=== PATIENT | male | born 1955 | race Caucasian/White ===

== ENCOUNTER 2016-12-27 07:29 | Emergency (ER) | payer OTHER ==
[2016-12-27 08:05] LABS: BASO # 0.1 K/mm3 (0.0-0.2); BASO % 0.4 % (0.2-1.0); EOS # 0.1 (0.0-0.5); EOS % 1.1 % (0.9-2.9); HEMATOCRIT 46.5 % (32.0-52.0); HEMOGLOBIN 15.5 gm/l (14.0-18.0); IMM NEUT% 0.3 % (0-1); LYMPH # 1.6 (1.0-4.8); LYMPH % 13.9 % (15-45); MEAN CELL VOLUME 92.3 fl (80.0-94.0); MEAN CORPUSCULAR HEMOGLOBIN 30.8 pg (27.0-31.0); MEAN CORPUSCULAR HGB CONC 33.3 g/dl (33.0-37.0); MEAN PLATELET VOLUME 11.6 fl (7.4-10.4); MONO # 0.9 (0.0-0.8); MONO % 7.5 % (4-12); NEUT % 76.8 % (43-75); PLATELET COUNT 192 K/mm3 (130-400)
[2016-12-27] MEDS ORDERED: ONDANSETRON 4 MG/2ML 2 ML VIAL ONE (08:08)
[2016-12-27] MEDS ORDERED: LACTATED RINGERS 1,000 ML ONE ×2 (08:08→10:13)
[2016-12-27] MEDS ORDERED: HYDROMORPHONE HCL 0.5 MG/0.5 ML SYRINGE ONE ×3 (08:08→13:05)
[2016-12-27 08:26] LABS: ALB/GLOB RATIO 0.9 (>1.0); ALBUMIN 3.6 gm/dL (3.5-5.7)
--- NOTE | 2016-12-27 09:30 | CT ---
CT ABDOMEN AND PELVIS WITHOUT CONTRAST HISTORY: Left-sided pain, history of renal calculi. TECHNIQUE: No intravenous contrast administered; contiguous axial images were acquired from the lung bases to the ischial tuberosities. Oral contrast was not administered. COMPARISON:None. FINDINGS: LUNG BASES: No gross airspace consolidation or pleural effusion. This made of complex cystic versus soft tissue attenuation lesion measuring 8.2 x 4.0 cm in axial dimensions, at least 2.6 cm, incompletely depicted. A congenital cyst (e.g., pericardial cyst, bronchogenic cyst) is favored, but follow-up chest CT assessment with contrast is recommended. LIVER: No focal mass effect. SPLEEN: No focal mass effect. PANCREAS: No focal mass effect. ADRENAL GLANDS: No mass effect. KIDNEYS: 5 mm left renal calculus. No collecting system dilatation on the left. Partly calcified lesion measuring 11 mm in size. There is ureteral dilatation with a 4 mm calculus identified at the L4 level. No additional ureteral calculi. GALLBLADDER: Present. BOWEL: Moderate fecal loading. Limited assessment of the distal colon due to decompression. No abnormal small bowel dilatation. APPENDIX: Not clearly identified. PELVIC ORGANS: No gross mass effect. Inguinal regions: Fatty left inguinal hernia. FREE FLUID: No gross free fluid identified. ABDOMINOPELVIC LYMPH NODES: No abnormally enlarged lymph nodes identified. ABDOMINAL AORTA: Mild to moderate calcifications without aneurysmal dilatation. ANTERIOR ABDOMINAL WALL: Supraumbilical fatty ventral hernia with minor stranding of fat. No bowel content or fluid identified. OSSEOUS STRUCTURES: Severe disc degeneration at the L3-4 level with associated canal stenosis. Evaluation of the spine somewhat limited given body habitus. IMPRESSION: 1. Obstructive 4 mm left proximal ureteral calculus, 5 mm left renal calculus remaining. 2. 8.2 cm right-sided pericardial lesion; while a complex congenital cyst is favored, recommend eventual postcontrast CT to exclude a solid mass lesion. 3. Fatty left inguinal and supraumbilical ventral herniation. 4. Prominent disc degeneration and spinal stenosis at the L3-4 level. Results were electronically transmitted to the electronic medical record at 12/27/2016 at 0923 hours.
[2016-12-27 11:48] LABS: SPECIFIC GRAVITY 1.015 (1.001-1.030); URINE BILIRUBIN NEGATIVE (NEGATIVE); URINE BLOOD 4+ (NEGATIVE); URINE GLUCOSE (UA) NEGATIVE (NEGATIVE); URINE LEUKOCYTE ESTERASE NEGATIVE (NEGATIVE); URINE NITRITE NEGATIVE (NEGATIVE); URINE PROTEIN TRACE (NEGATIVE); URINE UROBILINOGEN NORMAL (0-1 mg/dl)
[2016-12-27 11:53] LABS: URINE APPEARANCE CLEAR; URINE COLOR YELLOW
[2016-12-27 12:06] LABS: URINE BACTERIA RARE; URINE EPITHELIAL CELLS 0-2 /hpf; URINE MUCUS 1+; URINE RBC 20-30 /hpf; URINE WBC NEG /hpf
[2016-12-27] MEDS ORDERED: KETOROLAC TROMETHAMINE 15 MG/ML VIAL ONE (12:46)
== END 2016-12-27 13:14 | disposition home or self-care (01) ==
LOC: ED 07:29
DX: N20.1 Calculus of ureter (principal); Z87.442 Personal history of urinary calculi
CPT/HCPCS: 85025; 80053; 81001; 74176; 96375 ×2; 96376; 99284 ×2; 96374; 96361 ×2; J1885; J2405; J7120 ×2; J1170 ×3

== ENCOUNTER 2017-01-04 08:39 | Day surgery (SDC) | payer OTHER ==
[~2017-01-04 08:39] MED LIST: CEFAZOLIN SODIUM 2 GRAM DUPLEX 50 ML IV PRN; GENTAMICIN SULFATE 320 MG in SODIUM CHLORIDE 0.9% 100 ML IV PRN; IV START KIT ONE; LACTATED RINGERS 1,000 ML ONE
[2017-01-04] MEDS ORDERED: MIDAZOLAM HCL 1 MG/ML 2ML VIAL ONE (09:02)
[2017-01-04] MEDS ORDERED: FENTANYL 100 MCG/2 ML VIAL ONE ×3 (09:02→12:14)
[2017-01-04] MEDS ORDERED: PROPOFOL 20 ML IV ONE (09:02)
[2017-01-04] MEDS ORDERED: ROCURONIUM BROMIDE 10 MG/ML DOSE IV ONE (09:05)
[2017-01-04] MEDS ORDERED: IOPAMIDOL 300 (61%) 30 ML SDV ONE (09:42)
[2017-01-04] MEDS ORDERED: OPIUM/BELLADONNA ALKALOIDS 1 EACH SUP PR ONE (09:43)
[2017-01-04] MEDS ORDERED: SUCCINYLCHOLINE CHL 20 MG/ML DOSE ONE (10:04)
[2017-01-04] MEDS ORDERED: GLYCOPYRROLATE 0.2 MG/ML 1ML VIAL ONE (10:27)
[2017-01-04] MEDS ORDERED: NEOSTIGMINE METHYLSULFATE 1 MG/ML DOSE ONE (10:27)
[2017-01-04] MEDS ORDERED: ONDANSETRON 4 MG/2ML 2 ML VIAL ONE (10:27)
[2017-01-04] MEDS ORDERED: ONDANSETRON 4 MG/2ML 2 ML VIAL IV PRN ×2 (10:29→12:33)
[2017-01-04] MEDS ORDERED: PROMETHAZINE HCL 25 MG/ML VIAL IM PRN (10:29)
[2017-01-04] MEDS ORDERED: LACTATED RINGERS 1,000 ML IV SCH (10:30)
[2017-01-04] MEDS ORDERED: LACTATED RINGERS 1,000 ML ONE ×2 (11:34→14:01)
[2017-01-04] MEDS: MORPHINE SULFATE 4 MG/ML SYRINGE IV PRN ×2 (12:04→12:12)
[2017-01-04] MEDS ORDERED: MORPHINE SULFATE 4 MG/ML SYRINGE ONE (12:04)
[2017-01-04] MEDS: FENTANYL 100 MCG/2 ML VIAL IV PRN ×2 (12:16→12:22)
--- NOTE | 2017-01-04 12:31 | RAD ---
Exam: Retrograde urogram COMPARISON: CT 12/27/2016 INDICATION: Left ureteral stent placement. Findings: Fluoroscopy was provided for Dr. العراقي 93.2 seconds of fluoroscopy time was utilized. 7 static images were submitted for interpretation. One of the images demonstrate a subtle filling defect within the mid left ureter, presumably reflecting the calculus seen on recent CT. A ureteral stent was placed, and the ends of the stent were in the expected location at the end of the exam. IMPRESSION: Fluoroscopy was provided for Dr. العراقي, please see his notes for discussion.
[2017-01-04] MEDS ORDERED: MORPHINE SULFATE 2 MG/ML SYRINGE IV PRN (12:33)
[2017-01-04] MEDS ORDERED: HYDROCODONE/ACETAMINOPHEN 5/325MG TABLET PO PRN (12:33)
[2017-01-04] MEDS ORDERED: PHENAZOPYRIDINE HCL 200 MG TABLET ONE (13:11)
[2017-01-04] MEDS ORDERED: HYDROCODONE/ACETAMINOPHEN 5/325MG TABLET ONE (13:11)
--- NOTE | 2017-01-04 14:24 | OP ---
VERONA ORTEGA [id number] DATE OF OPERATION: January 04, 2017 SURGEON: Marcel العراقي M.D. CLOTH SHRINKER: None. ANESTHESIA: General. PREOPERATIVE DIAGNOSIS: Left ureteral calculi. POSTOPERATIVE DIAGNOSIS: Left ureteral calculi. PROCEDURE: 1. CYSTOSCOPY. 2. LEFT RETROGRADE UROGRAPHY. 3. LEFT URETEROSCOPY WITH HOLMIUM LASER LITHOTRIPSY. 4. PLACEMENT OF A LEFT URETERAL STENT. SPECIMENS: Fragments of left ureteral calculi. INDICATIONS: The patient is a 61-year-old man who developed acute renal colic on December 27, 2016. He was in the emergency room with two stones 4 and 5 mm in the left upper ureter and kidney. He has had prior stones in the past and two procedures for urolithiasis. He initially had gross hematuria and had microscopic hematuria when he was seen. He passed at least one stone over the weekend and presents for intervention for the larger stone. FINDINGS: The urethra appeared normal. Membranous urethra is intact. The prosthetic fossa is 3.5 to 4 cm in length and at least partially obstructed anatomically by prostatic tissue. Bladder neck was elevated. Within the bladder there were many small calcifications raising the question of dysfunctional voiding and retained urine. On urography, we saw a filling defect in the left distal ureter as well as the region of the ureteropelvic junction. The distal ureteral stone proved to be a fragment of the overall fragmented larger stone. It was removed. The remainder of the ureter ureteroscopically appeared normal. The stone fragments with wire placement were displaced into the lower pole. There were several calcifications adherent to the papillae throughout the collecting system. PROCEDURE: The patient was identified and brought to the operating room where general anesthesia was induced supine. Then he was placed in a modified lithotomy position with the left leg low and the right leg high. The genital region was prepared and draped sterilely. A 21 Russian rigid cystoscope was then introduced with saline as an irrigant. Findings are reported above. Using a cone tip catheter applied against the left ureteral orifice. Retrograde study was obtained with findings as reported above. Initially we tried to pass a floppy tip wire and could not get it to negotiate beyond the intramural ureter, and therefore elected to switch over to a semi-rigid ureteroscope with saline as an irrigant. Once inside the distal ureter, we found the calculus which was making wire passage difficulty. We were able to engage this fragment with an open ended basket and carefully deliver it through the ureter. Then, through the ureteroscope, we passed a floppy tip wire to the levels of the kidney with the semi-rigid ureteroscope. Over the wire, the distal ureter was dilated with a stylet, then over the stylet an introducer sheath was passed. The sheath was secured with #2-0 nylon with the wire external to the sheath. Through the sheath, we passed a flexible ureteroscope, examined the remainder of the ureter, found an area of irritation in the region of the ureteropelvic junction as expected and then examined the calyceal system. The largest fragments were found displaced into the lower pole. We used a 200 micron fiber with holmium laser set at 0.5 joules at a rate of 12 hertz and managed to fragment the larger fragment into tiny pieces. We also took the time to dust several small nascent calculi scattered throughout the collection system. Finding no remaining large fragments, we removed the ureteroscope and introducer sheath. Wire was back threaded through the cystoscope and a 26 cm Polaris type 6 Russian stent was placed and the wire removed. With the stent in good position, we removed the cystoscope and passed a 20 Russian Eldridge catheter to gravity drainage for temporary observation for hematuria. Estimated blood loss 20 mL or less. No early complications. Patient tolerated the procedure well and was taken in stable condition to the post anesthesia room. V#[id number] Cc: Sheri Collins M.D.
[2017-01-04] MEDS ORDERED: PHENAZOPYRIDINE HCL 200 MG TABLET PO SCH (15:00)
[2017-01-07 11:57] LABS: CALCULUS NUMBER 3 (()); CALCULUS TOTAL WEIGHT 60 mg (())
== END 2017-01-04 20:13 | disposition home or self-care (01) ==
LOC: SDC 08:39
PROVIDERS: ATTEND Urology
PROC: 0T778DZ Dilation of Left Ureter with Intraluminal Device, Via Natural or Artificial Opening Endoscopic (ICD-10-PCS; principal; 2017-01-04)
PROC: 0TF78ZZ Fragmentation in Left Ureter, Via Natural or Artificial Opening Endoscopic (ICD-10-PCS; principal; 2017-01-04)
DX: N20.1 Calculus of ureter (principal); E03.9 Hypothyroidism, unspecified; Z85.72 Personal history of non-Hodgkin lymphomas; F41.9 Anxiety disorder, unspecified; F32.9 Major depressive disorder, single episode, unspecified
CPT/HCPCS: 52353; 82365; 74420; J3010 ×3; J1580; J2270; A9270 ×3; J2250; J2405; J7120 ×3; J7050; Q9967